=== PATIENT | female | born 1995 | race Caucasian/White ===

== ENCOUNTER 2020-01-10 15:03 | Outpatient (REF) | payer MEDICARE, MEDICAID, SELFPAY ==
[2020-01-11 09:09] LABS: BV Int Neg Control Negative (Negative); BV Int Pos Control Positive (Positive)
== END 2020-01-10 15:04 | disposition home or self-care (01) ==
LOC: HO.LAB 15:03
PROVIDERS: PCP Nurse Practitioner Family; Visit Provider Advanced Practice Midwife
DX: N89.8 Other specified noninflammatory disorders of vagina (principal)
CPT/HCPCS: 87480; 87510; 87660; 99212

== ENCOUNTER 2020-04-07 17:40 | Emergency (ER) | payer OTHER, MEDICAID, SELFPAY ==
[2020-04-07 17:55] VITALS: BP 118/75; PULSE 90; RESP 18; TEMP 37.1; O2SAT 99; BMI 23.4
[2020-04-07 20:00] VITALS: BP 111/73; PULSE 89; RESP 18; TEMP 36.9; O2SAT 100
--- NOTE | 2020-04-07 20:02 | ED.GENADULT ---
HPI - General Adult General Chief complaint: General Medical Stated complaint: MED REACTION Time Seen by Provider: 04/07/20 20:02 Related Data Home Medications Medication Instructions Recorded Confirmed norethindrone (contraceptive) 0.35 0.35 mg PO DAILY 01/10/20 mg tablet Previous Rx's Medication Instructions Recorded metronidazole 0.75 % vaginal gel 1 appful VAGINAL DAILY 5 Days #70 g 01/10/20 amitriptyline 25 mg PO BEDTIME #20 tab 04/07/20 Allergies Allergy/AdvReac Type Severity Reaction Status Date / Time No Known Allergies Allergy Verified 01/10/20 15:08 [facility] Social History Social History Alcohol intake: never Smoking Status: Never smoker Smoked in Last 30 Days: No Use of substances other than those prescribed or required for medical reasons: No Substance Use Type: Marijuana Advance Directives: No Advance Directives Information Provided: No Sexual orientation: Straight/Heterosexual Gender identity: female Physical Exam Vital Signs: Vital Signs: Last Vital Signs Temp 98.5 F 04/07/20 20:00 Pulse 89 04/07/20 20:00 Resp 18 04/07/20 20:00 BP 111/73 04/07/20 20:00 Pulse Ox 100 04/07/20 20:00 Body Mass Index 23.4 Discharge Plan Discharge Clinical Impression: Fibromyalgia, Anxiety Patient Disposition: Home, Self-Care Instructions: Fibromyalgia (ED), Anxiety (ED) Additional Instructions: rest at home. Take medication as advised. Follow with PCP Prescriptions: New amitriptyline 25 mg tablet 25 mg PO BEDTIME Qty: 20 RF: 0 No Action norethindrone (contraceptive) 0.35 mg tablet 0.35 mg PO DAILY RF: 0 metronidazole [Metrogel Vaginal] 0.75 % gel 1 appful vaginal DAILY 5 Days Qty: 70 RF: 0 Interventions: ED Discharge Assessment Last Done: 04/07/20 20:19 Discharge Date/Time: 04/07/20 20:24
[2020-04-07] MEDS: traMADoL HCL 50 MG TABLET PO (20:24)
== END 2020-04-07 20:24 | disposition home or self-care (01) ==
PROVIDERS: Emergency Provider Internal Medicine
DX: M79.7 Fibromyalgia (principal); F41.1 Generalized anxiety disorder; F43.0 Acute stress reaction; Z79.899 Other long term (current) drug therapy
CPT/HCPCS: 99283; 99284

== ENCOUNTER 2021-09-02 22:22 | Emergency (ER) | payer OTHER, SELFPAY ==
--- NOTE | ~2021-09-02 | US_ITS ---
EXAMINATION: US OBSTETRICAL ULTRASOUND CLINICAL INFORMATION: Passing clots. Probable miscarriage. COMPARISON: None. TECHNIQUE: Transabdominal and endovaginal sonographic evaluation of the pelvis. Doppler evaluation with spectral analysis performed. FINDINGS: There is no intrauterine identified. Homogenous endometrium measuring 1.1 cm. No abnormal Doppler vascularity. MATERNAL ADNEXA: The right maternal ovary measures 2.2 x 1.8 x 2.1 cm. Normal arterial and venous spectral waveforms. The left maternal ovary measures 3.1 x 1.4 x 2.4 cm. Normal venous spectral waveforms. Corpus luteal cyst measuring 1.6 cm. There is no significant maternal adnexal mass. No maternal pelvic ascites. US/US OB pelvic and transvaginal IMPRESSION: No intrauterine identified. Homogenous endometrium. No ectopic visualized. No adnexal mass.
[2021-09-02 22:25] VITALS: BP 121/69; PULSE 120; RESP 17; TEMP 36.9; O2SAT 99; BMI 21.4
[2021-09-02 22:53] LABS: MANUAL DIFF FLAG NO
[2021-09-02 22:56] LABS: Basophils Absolute Auto 0.1 X10*3/uL (0.0-0.2); Basophils Percent Auto 0.4 % (0-2); Eosinophils Absolute Auto 0.2 X10*3/uL (0.0-0.4); Eosinophils Percent Auto 1.4 % (0-4); Hematocrit 40.6 % (37.0-47.0); Imm Gran Abs Auto 0.04 X10*3/uL (0.00-0.03); Imm Gran Pct Auto 0.3 % (0.0-0.4); Lymphocytes Absolute Auto 3.4 X10*3/uL (1.2-4.9); Lymphocytes Percent Auto 26.4 % (20-40); Mean Corpuscular HGB Conc 34.5 g/dl (31.0-35.0); Mean Corpuscular Hemoglobin 30.8 pg (27.0-33.0); Mean Corpuscular Volume 89.2 fL (80.0-98.0); Mean Platelet Volume 11.1 fL (9.4-12.3); Monocytes Absolute Auto 0.7 X10*3/uL (0.1-1.2); Monocytes Percent Auto 5.2 % (2-11); Neutrophils Absolute Auto 8.4 x10*3/uL (2.0-8.3); Neutrophils Percent Auto 66.3 % (45-73); Platelet Count 218 X10*3/uL (160-400); Red Blood Count 4.55 X10*6/uL (4.20-5.50); Red Cell Distribution Width 12.6 % (11.0-16.0); White Blood Count 12.7 X10*3/uL (4.8-10.8)
[2021-09-02 23:14] LABS: Alanine Aminotransferase 14 U/L (0-31); Albumin Level 4.6 g/dL (3.5-5.0); Alkaline Phosphatase 54 U/L (39-117); Anion Gap 14 (12-20); Aspartate Amino Transferase 14 U/L (5-31); Bilirubin Total 0.5 mg/dL (0.0-1.0); Blood Urea Nitrogen 7 mg/dL (9-16); Calcium 9.2 mg/dL (8.4-10.2); Carbon Dioxide 23 mmol/L (22-29); Chloride 104 mmol/L (96-108); Creatinine Clr Calc Pharmacy 88.4; Estimated Glomerular Filt Rate > 60; Glucose Random 162 mg/dL (60-115); Potassium 3.1 mmol/L (3.3-5.1); Sodium 138 mmol/L (135-145); Total Protein 7.2 g/dL (6.5-8.0)
[2021-09-02 23:19] LABS: HCG Quantitative 4325 mIU/mL
--- NOTE | 2021-09-02 23:24 | ED.GENADULT ---
HPI - General Adult General Chief complaint: Abdominal Pain Stated complaint: Lower abd pain Time Seen by Provider: 09/02/21 23:08 Source: patient Limitations: no limitations History of Present Illness HPI narrative: this is a 26-year-old female who is previously 2, para 2, although 1 of her children at 1 month. The patient believes she last had her menstrual period in June. She notes she has irregular. The baseline. Few weeks ago she thought she passed some non bloody discharge. For the last week the patient has been having some cramping and vaginal spotting, did pass a clot here tonight in the ED which she kept for examination. The patient has had some breast soreness but also notes that she tends to get symptoms like that intermittently even when she is not . She has had nausea but again notes that she has chronic intermittent nausea related to migraine headaches. She denies any fever, denies any vomiting. She does have some low back pain Related Data Home Medications Medication Instructions Recorded Confirmed norethindrone (contraceptive) 0.35 0.35 mg PO DAILY 01/10/20 mg tablet Previous Rx's Medication Instructions Recorded metronidazole 0.75 % vaginal gel 1 appful vaginal DAILY 5 days #70 01/10/20 (Metrogel Vaginal) grams amitriptyline 25 mg tablet 25 mg PO BEDTIME #20 tabs 04/07/20 Allergies Allergy/AdvReac Type Severity Reaction Status Date / Time No Known Allergies Allergy Verified 01/10/20 15:08 Review of Systems Review of Systems: as per HPI Yes all other systems are reviewed and are negative Constitutional: Constitutional: Reports as per HPI and Denies fever(s) Eyes: Eyes: Reports as per HPI and Reports no additional eye complaints ENT: Reports system reviewed and no additional complaints, except as documented, Reports as per HPI, Denies nasal congestion, Denies nasal discharge and Denies sore throat Cardiovascular: Cardiovascular: Reports as per HPI, Denies chest pain and Denies dyspnea Respiratory: Respiratory: Reports as per HPI, Denies cough and Denies dyspnea Gastrointestinal: Gastrointestinal: Reports as per HPI, Denies abdominal pain, Denies diarrhea and Denies vomiting Genitourinary: Genitourinary: Reports as per HPI, Denies hematuria, Denies urinary frequency and Denies dysuria Comments: urinary frequency Musculoskeletal: Musculoskeletal: Reports no additional musculoskeletal complaints and Denies numbness Integumentary/Breasts: Skin/Breast: Reports as per HPI and Denies rash Neurologic: Reports as per HPI, Denies focal weakness and Denies numbness Psychiatric: Psychiatric: Reports no additional psychiatric complaints and Reports as per HPI Endocrine: Endocrine: Reports no additional endocrine complaints and Reports as per HPI Hematologic/Lymphatic: Hematologic/Lymphatic: Reports no additional hematologic/lymphatic complaints, Reports as per HPI and Reports other (No peripheral edema) [facility] Social History Social History Alcohol intake: never Substance Use Type: Marijuana Advance Directives: No Sexual orientation: Straight/Heterosexual Gender identity: Female Physical Exam ED Vital Signs: Vital Signs - 24 hr 09/02/21 22:25 09/03/21 00:25 09/03/21 02:38 Temperature 98.5 F Pulse Rate 120 H 88 70 Respiratory Rate 17 20 Blood Pressure 121/69 107/71 107/66 Pulse Oximetry 99 100 99 Oxygen Delivery Method Room Air Room Air Room Air BMI result Body Mass Index 21.4 Const General: no acute distress Orientation/consciousness: patient oriented x3 HENMT Head: Yes normal to inspection General nose exam: Normal external nose present Mouth: moist mucous membranes Throat: Yes posterior oropharynx normal, Yes tonsils normal and Yes uvula midline Eyes Eyelids: Yes eyelids normal Conjunctivae: conjunctivae normal Pupils: Equal, round and reactive pupils present Neck Neck: Yes supple Resp Effort & Inspection: normal respiratory effort Auscultation: clear to auscultation bilaterally Cardio Rate: regular rate Rhythm: regular rhythm Heart sounds: S1 normal heart sound present, S2 normal heart sound present, no gallops, no murmurs and no rubs GI Inspection: No distended Palpation (GI): Soft to palpation and nontender Auscultation: normal bowel sounds Skin General skin exam: other (Warm and dry) Neuro General: patient oriented x3 and CN's II-XI intact bilaterally Cranial nerves: Yes Equal, round and reactive pupils present Extrem General: Yes no pedal edema Psych Affect: normal affect Attitude: cooperative Medical Decision Making [facility] Narrative Medical decision making narrative: Patient with 1st trimester , a quant of 4500, had passed some tissue which I examined and was tissue consistent with products of conception, though I did not examine it extensively. Patient had not been sure if she was . Patient was emotionally distraught as she 3 years ago had a baby that 1 month. Ultrasound showed a thickened endometrium but no gestational sac consistent with completed . Patient's blood type is O-positive. Patient appeared well clinically except for her emotional state. Patient was treated with Ativan 1 mg p.o.. Lab Data Lab results reviewed: Yes I reviewed the patient's lab results. Result diagrams: 09/02/21 22:47 09/02/21 22:47 Labs: Lab Results 09/02/21 09/02/21 09/02/21 Range/Units 22:47 22:47 22:47 WBC 12.7 H (4.8-10.8) X10*3/uL RBC 4.55 (4.20-5.50) X10*6/uL Hgb 14.0 (12.0-16.0) g/dl Hct 40.6 (37.0-47.0) % MCV 89.2 (80.0-98.0) fL MCH 30.8 (27.0-33.0) pg MCHC 34.5 (31.0-35.0) g/dl RDW 12.6 (11.0-16.0) % Plt Count 218 (160-400) X10*3/uL MPV 11.1 (9.4-12.3) fL Immature Gran % (Auto) 0.3 (0.0-0.4) % Neut % (Auto) 66.3 (45-73) % Lymph % (Auto) 26.4 (20-40) % [place] % (Auto) 5.2 (2-11) % Eos % (Auto) 1.4 (0-4) % Baso % (Auto) 0.4 (0-2) % Lymph # (Auto) 3.4 (1.2-4.9) X10*3/uL [place] # (Auto) 0.7 (0.1-1.2) X10*3/uL Eos # (Auto) 0.2 (0.0-0.4) X10*3/uL Baso # (Auto) 0.1 (0.0-0.2) X10*3/uL Abs Immat Gran (auto) 0.04 H (0.00-0.03) X10*3/uL Absolute Neuts (auto) 8.4 H (2.0-8.3) x10*3/uL Absolute Nucleated RBC 0.000 (0.0-0.012) X10*3/uL Nucleated RBC % (auto) 0.0 (0.0-0.2) /100WBC Sodium 138 (135-145) mmol/L Potassium 3.1 L (3.3-5.1) mmol/L Chloride 104 (96-108) mmol/L Carbon Dioxide 23 (22-29) mmol/L Anion Gap 14 (12-20) BUN 7 L (9-16) mg/dL Creatinine 0.74 (0.5-1.4) mg/dL Estim Creat Clear Calc 88.4 Estimated GFR > 60 Random Glucose 162 H (60-115) mg/dL Calcium 9.2 (8.4-10.2) mg/dL Total Bilirubin 0.5 (0.0-1.0) mg/dL AST 14 (5-31) U/L ALT 14 (0-31) U/L Alkaline Phosphatase 54 (39-117) U/L Total Protein 7.2 (6.5-8.0) g/dL Albumin 4.6 (3.5-5.0) g/dL Beta HCG, Quant 4325 mIU/mL Blood Type 09/02/21 Range/Units 23:58 WBC (4.8-10.8) X10*3/uL RBC (4.20-5.50) X10*6/uL Hgb (12.0-16.0) g/dl Hct (37.0-47.0) % MCV (80.0-98.0) fL MCH (27.0-33.0) pg MCHC (31.0-35.0) g/dl RDW (11.0-16.0) % Plt Count (160-400) X10*3/uL MPV (9.4-12.3) fL Immature Gran % (Auto) (0.0-0.4) % Neut % (Auto) (45-73) % Lymph % (Auto) (20-40) % [place] % (Auto) (2-11) % Eos % (Auto) (0-4) % Baso % (Auto) (0-2) % Lymph # (Auto) (1.2-4.9) X10*3/uL [place] # (Auto) (0.1-1.2) X10*3/uL Eos # (Auto) (0.0-0.4) X10*3/uL Baso # (Auto) (0.0-0.2) X10*3/uL Abs Immat Gran (auto) (0.00-0.03) X10*3/uL Absolute Neuts (auto) (2.0-8.3) x10*3/uL Absolute Nucleated RBC (0.0-0.012) X10*3/uL Nucleated RBC % (auto) (0.0-0.2) /100WBC Sodium (135-145) mmol/L Potassium (3.3-5.1) mmol/L Chloride (96-108) mmol/L Carbon Dioxide (22-29) mmol/L Anion Gap (12-20) BUN (9-16) mg/dL Creatinine (0.5-1.4) mg/dL Estim Creat Clear Calc Estimated GFR Random Glucose (60-115) mg/dL Calcium (8.4-10.2) mg/dL Total Bilirubin (0.0-1.0) mg/dL AST (5-31) U/L ALT (0-31) U/L Alkaline Phosphatase (39-117) U/L Total Protein (6.5-8.0) g/dL Albumin (3.5-5.0) g/dL Beta HCG, Quant mIU/mL Blood Type O Positive Imaging Data ultrasound pelvis: Radiologist's impression: IMPRESSION: No intrauterine identified. Homogenous endometrium. ? No ectopic visualized. No adnexal mass. Discharge Plan Discharge Clinical Impression: Spontaneous Patient Disposition: Home, Self-Care Instructions: Miscarriage (ED) Additional Instructions: Use acetaminophen or ibuprofen for pain as needed. Since her miscarriage is complete, in all likelihood the bleeding and cramping will improve over the next 24 hours. Follow-up with your OBGYN Prescriptions: No Action amitriptyline 25 mg tablet 25 mg PO BEDTIME Qty: 20 0RF norethindrone (contraceptive) 0.35 mg tablet 0.35 mg PO DAILY metronidazole [Metrogel Vaginal] 0.75 % gel 1 appful vaginal DAILY 5 Days Qty: 70 0RF Interventions: ED Discharge Assessment Last Done: 09/03/21 02:35 Discharge Date/Time: 09/03/21 02:41
[2021-09-03 00:25] VITALS: BP 107/71; PULSE 88; RESP 20; O2SAT 100
[2021-09-03] MEDS: LORazepam 1 MG TABLET PO (02:33)
[2021-09-03 02:38] VITALS: BP 107/66; PULSE 70; O2SAT 99
== END 2021-09-03 02:41 | disposition home or self-care (01) ==
PROVIDERS: Emergency Provider Emergency Medicine
DX: O03.9 Complete or unspecified spontaneous abortion without complication (principal); R10.30 Lower abdominal pain, unspecified
CPT/HCPCS: 36415; 76801; 76817; 80053; 84702; 85025; 86900; 86901; 96374; 99284

== ENCOUNTER 2022-11-20 02:36 | Emergency (ER) | payer OTHER, SELFPAY ==
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
[2022-11-20 03:24] VITALS: BP 108/63; PULSE 92; RESP 18; TEMP 37.1; O2SAT 99; BMI 24.3
[2022-11-20 04:58] VITALS: BP 115/73; PULSE 86; RESP 17; TEMP 37.1; O2SAT 100
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
--- NOTE | 2022-11-20 06:06 | PC.NURSE ---
Reviewed discharge instructions with pt, pt verbalized understanding, Education on sign and symptoms of miscarriage. No sign of distress.
== END 2022-11-20 06:08 | disposition home or self-care (01) ==
LOC: HO.ED 05:36
PROVIDERS: Emergency Provider Emergency Medicine
DX: O9A.212 Injury, poisoning and certain other consequences of external causes complicating pregnancy, second trimester (principal); S39.91XA Unspecified injury of abdomen, initial encounter; W50.0XXA Accidental hit or strike by another person, initial encounter; Y93.89 Activity, other specified; Y92.9 Unspecified place or not applicable; Y99.9 Unspecified external cause status; Z3A.13 13 weeks gestation of pregnancy
CPT/HCPCS: 76815; 99284